=== PATIENT | male | born 1945 | race Caucasian/White ===

== ENCOUNTER → 2018-03-21 | Outpatient (CLI) | payer MEDICARE, MEDICAID | LOC: VAS 16:26 → RAD 16:45 | DX: I08.8 Other rheumatic multiple valve diseases (principal); R93.1 Abnormal findings on diagnostic imaging of heart and coronary circulation; Z95.0 Presence of cardiac pacemaker ==

== ENCOUNTER 2018-11-16 06:58 | Emergency (ER) | payer MEDICARE, MEDICAID ==
[2018-11-16 07:50] LABS: HEMATOCRIT 36.8 % (42.0-52.0); MEAN CELL VOLUME 96 fl (78-100); MEAN CORPUSCULAR HEMOGLOBIN 31 pg (27-31); MEAN CORPUSCULAR HGB CONC 33 g/dL (33-37); MEAN PLATELET VOLUME 10.5 fl (7.4-10.4); PLATELET COUNT 262 K/mm3 (130-400); RED BLOOD COUNT 3.83 M/mm3 (4.20-5.60); RED CELL DISTRIBUTION WIDTH 13.4 % (11.5-14.5)
[2018-11-16 08:11] LABS: ALBUMIN 3.6 g/dL (3.4-4.8)
[2018-11-16 08:12] LABS: POTASSIUM 4.5 mmol/L (3.5-5.1)
[2018-11-16 08:13] LABS: CALCIUM 9.1 mg/dL (8.3-10.5)
[2018-11-16 08:14] LABS: TOTAL PROTEIN 6.6 g/dL (6.2-8.1)
[2018-11-16 08:18] LABS: TOTAL BILIRUBIN 0.4 mg/dL (0.2-1.2)
[2018-11-16 08:19] LABS: WHITE BLOOD COUNT 23.3 K/mm3 (4.8-10.8)
[2018-11-16 08:20] LABS: LYMPHOCYTE 9 % (20-51); MONOCYTE 3 % (3-10); NEUTROPHILS 88 % (42-75)
[2018-11-16 10:33] LABS: URINE APPEARANCE HAZY; URINE BILIRUBIN NEGATIVE (NEGATIVE); URINE BLOOD TRACE (NEGATIVE); URINE COLOR YELLOW; URINE GLUCOSE NEGATIVE (NEGATIVE); URINE KETONE NEGATIVE (NEGATIVE); URINE LEUKOCYTE ESTERASE TRACE (NEGATIVE); URINE NITRATE NEGATIVE (NEGATIVE); URINE PROTEIN(semi-quant) TRACE mg/dL (NEGATIVE); URINE UROBILINOGEN NORMAL (NORMAL)
[2018-11-16 10:35] LABS: URINE MUCUS PRESENT (NOT PRESENT)
[2018-11-16] MEDS ORDERED: ACETAMINOPHEN500 M5 PO (12:17)
[2018-11-16] MEDS ORDERED: ASPIRIN ADULT L81 M3 PO (12:17)
[2018-11-16] MEDS ORDERED: CITALOPRAM40 MG PO (12:17)
[2018-11-16] MEDS ORDERED: DITROPAN 5MG TAB5 MG PO (12:18)
[2018-11-16] MEDS ORDERED: DAILY VALUE1 EACH PO (12:18)
[2018-11-16] MEDS ORDERED: PRAVACHOL 20MG20 MG PO (12:18)
[2018-11-16] MEDS ORDERED: FINASTERIDE5 M1 PO (12:19)
[2018-11-16] MEDS ORDERED: SYSTANE 0.3-0.415 ML OU (12:20)
[2018-11-16] MEDS ORDERED: TOPROL XL 25MG25 MG PO (12:20)
[2018-11-16] MEDS ORDERED: FLOMAX0.4 MG PO (12:20)
[2018-11-16] MEDS ORDERED: COLACE100 M1 PO (12:20)
[2018-11-16] MEDS ORDERED: NYSTATIN1 EAC2 TOP (12:21)
[2018-11-16 13:12] VITALS: BP 120/62
== END 2018-11-16 14:15 | disposition short-term general hospital (02) ==
LOC: ED 06:58
PROVIDERS: Family Medicine
DX: J18.9 Pneumonia, unspecified organism (principal); A41.9 Sepsis, unspecified organism; I10 Essential (primary) hypertension; F03.90 Unspecified dementia, unspecified severity, without behavioral disturbance, psychotic disturbance, mood disturbance, and anxiety; Z95.0 Presence of cardiac pacemaker; Z98.890 Other specified postprocedural states; Z79.82 Long term (current) use of aspirin
CPT/HCPCS: J2543; J7030; Q9967

== ENCOUNTER 2021-08-19 17:38 | Emergency (ER) | payer MEDICARE, MEDICAID ==
[~2021-08-19] VITALS: Ht 185.4 cm; Wt 82.1 kg
[~2021-08-19 17:38] MED LIST: ACETAMINOPHEN500 M5 PO; ASPIRIN ADULT L81 M3 PO; CITALOPRAM40 MG PO; COLACE100 M1 PO; DAILY VALUE1 EACH PO; DITROPAN 5MG TAB5 MG PO; FINASTERIDE5 M1 PO; FLOMAX0.4 MG PO; NYSTATIN1 EAC2 TOP; PRAVACHOL 20MG20 MG PO; SYSTANE 0.3-0.415 ML OU; TOPROL XL 25MG25 MG PO
[2021-08-19] MEDS ORDERED: ESCITALOPRAM20 MG PO (18:53)
[2021-08-19] MEDS ORDERED: PRAVASTATIN SOD20 MG PO (18:54)
[2021-08-19 19:30] VITALS: BP 111/62
== END 2021-08-19 19:30 | disposition home or self-care (01) ==
LOC: ED 17:38
DX: S72.111A Displaced fracture of greater trochanter of right femur, initial encounter for closed fracture (principal); W01.0XXA Fall on same level from slipping, tripping and stumbling without subsequent striking against object, initial encounter